=== PATIENT | female | born 1965 | race Caucasian/White ===

== ENCOUNTER → 2017-03-03 | Outpatient (CLI) | payer OTHER | LOC: FIMAGING 19:13 | DX: M79.605 Pain in left leg (principal) ==

== ENCOUNTER → 2017-07-10 | Outpatient (CLI) | payer OTHER | LOC: FIMAGING 15:01 | PROVIDERS: ATTEND Nurse Practitioner Obstetrics & Gynecology | DX: Z12.31 Encounter for screening mammogram for malignant neoplasm of breast (principal) ==

== ENCOUNTER → 2018-09-24 | Outpatient (CLI) | payer OTHER | LOC: EMCIMAGING 14:46 ==